=== PATIENT | female | born 1930 | race Caucasian/White ===

== ENCOUNTER → 2016-05-16 | Outpatient (CLI) | payer MEDICARE ==
[~2016-05-16] MED LIST: BRILINTA 90 MG90 MG PO; EFFEXOR XR 75 M75 MG PO; LISINOPRIL10 MG PO; LOPRESSOR 25 MG25 MG PO; MEDROL TAB 4 MG4 MG PO; NEURONTIN 100100 MG PO; NITROSTAT0.4 MG SL; NORCO 7.5-3251 EACH PO; OMEPRAZOLE20 MG PO; RIVASTIGMINE4.5 MG PO; VITAMIN B-1000 MCG/M IM; VITAMIN D250000 UNIT PO; ZANTAC 150 MG150 MG PO; ZOCOR 40 MG TAB40 MG PO
== END ==
LOC: EMI 05-13 17:30 → KOH-I 08:15
DX: S32.040A Wedge compression fracture of fourth lumbar vertebra, initial encounter for closed fracture (principal); M54.5 Low back pain; M54.16 Radiculopathy, lumbar region; Z98.1 Arthrodesis status; M47.816 Spondylosis without myelopathy or radiculopathy, lumbar region
CPT/HCPCS: 72148

== ENCOUNTER 2016-08-03 20:21 | Inpatient (IN) | payer MEDICARE, OTHER ==
[~2016-08-03] VITALS: Ht 162.6 cm; Wt 72.6 kg
[2016-08-03] MEDS ORDERED: NORCO 7.5-3251 EACH PO (22:35)
[2016-08-03] MEDS ORDERED: ZANTAC 150 MG150 MG PO (22:36)
[2016-08-03] MEDS ORDERED: MEDROL TAB 4 MG4 MG PO (22:37)
[2016-08-03] MEDS ORDERED: EFFEXOR XR 75 M75 MG PO (22:37)
[2016-08-03] MEDS ORDERED: VITAMIN B-1000 MCG/M IM (22:40)
[2016-08-03] MEDS ORDERED: RIVASTIGMINE4.5 MG PO (22:40)
[2016-08-03] MEDS ORDERED: NEURONTIN 100100 MG PO (22:41)
[2016-08-03] MEDS ORDERED: OMEPRAZOLE20 MG PO (22:42)
[2016-08-03] MEDS ORDERED: VITAMIN D250000 UNIT PO (22:43)
[2016-08-04 01:09] LABS: HEMOGLOBIN 12.2 gm/dl (12.3-15.3); RED BLOOD COUNT 3.72 M/UL (4.00-5.10); WHITE BLOOD COUNT 8.1 K/UL (4.5-11.0)
[2016-08-04 02:03] LABS: BUN/CREATININE RATIO 18 (0-10)
[2016-08-05 04:44] LABS: HEMOGLOBIN 11.7 gm/dl (12.3-15.3); RED BLOOD COUNT 3.58 M/UL (4.00-5.10); WHITE BLOOD COUNT 8.5 K/UL (4.5-11.0)
[2016-08-05 05:02] LABS: BUN/CREATININE RATIO 21 (0-10)
[2016-08-05] MEDS ORDERED: LISINOPRIL10 MG PO (10:43)
[2016-08-05] MEDS ORDERED: ZOCOR 40 MG TAB40 MG PO (10:44)
[2016-08-05] MEDS ORDERED: LOPRESSOR 25 MG25 MG PO (10:44)
[2016-08-05] MEDS ORDERED: BRILINTA 90 MG90 MG PO (10:45)
[2016-08-05] MEDS ORDERED: NITROSTAT0.4 MG SL (10:46)
== END 2016-08-05 08:00 | disposition home or self-care (01) | DRG 247 ==
LOC: M/S 20:21 → CCU 22:11
PROVIDERS: Internal Medicine; ADMIT Internal Medicine
PROC: 027135Z Dilation of Coronary Artery, Two Arteries with Two Drug-eluting Intraluminal Devices, Percutaneous Approach (ICD-10-PCS; principal; 2016-08-04)
PROC: 4A023N7 Measurement of Cardiac Sampling and Pressure, Left Heart, Percutaneous Approach (ICD-10-PCS; 2016-08-04)
PROC: B2111ZZ Fluoroscopy of Multiple Coronary Arteries using Low Osmolar Contrast (ICD-10-PCS; 2016-08-04)
DX: I21.4 Non-ST elevation (NSTEMI) myocardial infarction (principal); E87.2 Acidosis; I25.110 Atherosclerotic heart disease of native coronary artery with unstable angina pectoris; I10 Essential (primary) hypertension; E78.5 Hyperlipidemia, unspecified; M06.9 Rheumatoid arthritis, unspecified; K21.9 Gastro-esophageal reflux disease without esophagitis; E53.8 Deficiency of other specified B group vitamins; E55.9 Vitamin D deficiency, unspecified; M19.90 Unspecified osteoarthritis, unspecified site; F03.90 Unspecified dementia, unspecified severity, without behavioral disturbance, psychotic disturbance, mood disturbance, and anxiety; F32.9 Major depressive disorder, single episode, unspecified; Z82.49 Family history of ischemic heart disease and other diseases of the circulatory system; Z79.52 Long term (current) use of systemic steroids; Z79.891 Long term (current) use of opiate analgesic; Z79.899 Other long term (current) drug therapy; Z88.8 Allergy status to other drugs, medicaments and biological substances; Z91.041 Radiographic dye allergy status; Z90.710 Acquired absence of both cervix and uterus; Z90.49 Acquired absence of other specified parts of digestive tract; Z98.890 Other specified postprocedural states; Z83.3 Family history of diabetes mellitus
CPT/HCPCS: ECHO; 36415; 80053; 80061; 82550; 82553; 83735; 84100; 84439; 84443; 84484; 85025; 85027; 85347; 85610; 85730; 93005; 93306; C1725; C1769; C1874; C1887; C9600; C9601; J0461; J0583; J1644; J2250; J2930; J3420; J7040; J7509; Q9965

== ENCOUNTER → 2020-03-11 | Outpatient (CLI) | payer MEDICARE | LOC: HEART 5 08:19 | DX: I25.10 Atherosclerotic heart disease of native coronary artery without angina pectoris (principal); E78.5 Hyperlipidemia, unspecified | CPT/HCPCS: 78452; A9502; J2785 ==